=== PATIENT | male | born 1985 | race Caucasian/White ===

== ENCOUNTER → 2022-01-20 | Day surgery (SDC) | payer OTHER ==
[~2022-01-20] VITALS: Ht 185.4 cm; Wt 86.2 kg
[~2022-01-20] MED LIST: PRILOSEC20 MG PO
[2022-01-20 06:58] LABS: BASOPHIL 0.7 % (0-2); EOSINOPHIL 1.9 % (0-5); HCT 45.5 % (42.0-52.0); HGB 15.5 g/dl (13.2-18.0); LYMPHOCYTE 32.2 % (15-48); MCH 30.5 pg (25.0-31.0); MCHC 34.1 g/dL (32.0-36.0); MCV 89.6 fL (78.0-100.0); MONOCYTE 6.7 % (0-12); NRBC 0; PLT 165 K/uL (150-400); RBC 5.08 M/uL (4.70-6.00); RDW 12.4 % (11.5-14.0); WBC 5.9 K/uL (4.0-10.5)
== END | disposition home or self-care (01) ==
LOC: FAS 06:23
PROVIDERS: Oral & Maxillofacial Surgery
DX: K02.9 Dental caries, unspecified (principal); K04.7 Periapical abscess without sinus; K21.9 Gastro-esophageal reflux disease without esophagitis; F41.9 Anxiety disorder, unspecified; Z88.6 Allergy status to analgesic agent
CPT/HCPCS: D7140; D7210; D7310; 36415; 85025; J1100; J1885; J2250; J2405; J2704; J3010; J7120